=== PATIENT | male | born 1965 ===

== ENCOUNTER 2017-11-25 10:57 | Emergency (ER) | payer BC ==
[2017-11-25 10:57] VITALS: BMI 42.3
[2017-11-25 10:59] VITALS: RESP 20
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
[2017-11-25] MEDS ORDERED: Lidocaine 5% Patch TD STA (11:34)
[2017-11-25] MEDS ORDERED: Lidocaine 5% Patch TD ONE (11:39)
[2017-11-25 12:19] VITALS: BP 148/88; PULSE 74; TEMP 98.5
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
[2017-11-25 12:41] VITALS: O2SAT 96
== END 2017-11-25 12:18 | disposition home or self-care (01) ==
LOC: C.ER 10:57
DX: M54.2 Cervicalgia (principal); M54.5 Low back pain; V89.2XXA Person injured in unspecified motor-vehicle accident, traffic, initial encounter
CPT/HCPCS: 72040; 72100; 96372; 99284; J1885